=== PATIENT | female | born 1960 | race Caucasian/White ===

== ENCOUNTER 2019-09-12 11:19 | Observation (INO) ==
[2019-09-12] MEDS ORDERED: SODIUM CHLORIDE 0.9% 1000ML 1,000 ML IV SCH (11:45)
[2019-09-12] MEDS ORDERED: OPTIRAY 320 125ml IV PRN (11:45)
[2019-09-12 11:47] LABS: Basophils # (auto) 0.04 K/uL (0-0.2); Basophils % (auto) 0.5 %; Eosinophils % (auto) 3.9 %; Hematocrit (blood only) 40.3 % (37-47); Hemoglobin 12.7 g/dL (12.0-16.0); Immature Granulocytes # (auto) 0.01 K/uL (0.00-0.02); Immature Granulocytes % (auto) 0.1 %; Lymphocytes % (auto) 22.4 %; Mean Corpuscular Hemoglobin 27.2 pg (25-34); Mean Corpuscular Hgb Conc 31.5 g/dL (32-36); Mean Corpuscular Volume 86.3 fL (80-100); Mean Platelet Volume 10.2 fL (7.4-10.4); Monocytes # (auto) 0.33 K/uL (0.11-0.59); Monocytes % (auto) 4.3 %; Neutrophils # (auto) 5.22 K/uL (1.4-6.5); Neutrophils % (auto) 68.8 %; Platelet Count 329 K/uL (130-400); RDW Standard Deviation 43.8 fL (36.4-46.3); Red Blood Count 4.67 M/uL (4.2-5.4)
[2019-09-12 11:54] LABS: iSTAT Creatinine 0.7 mg/dl (0.6-1.3); iSTAT Hemoglobin 13.3 g/dl (12.0-16.0); iSTAT Ionized Calcium 1.14 mmol/l (1.12-1.32); iSTAT Potassium 3.7 mEq/L (3.3-5.0)
[2019-09-12 11:58] LABS: Partial Thromboplastin Ratio 0.9; Partial Thromboplastin Time 23.6 Seconds (21.0-31.0); Prothrombin Time 9.9 Seconds (9.0-12.0)
--- NOTE | 2019-09-12 12:00 | CT Scan Report ---
CT SCAN OF THE BRAIN WITHOUT IV CONTRAST CLINICAL HISTORY: Strokelike symptoms. COMPARISON STUDY: No priors. TECHNIQUE: Unenhanced axial CT scan of the brain is performed from the vertex to the skull base. A d ose lowering technique was utilized adhering to the principles of ALARA. FINDINGS: Brain parenchyma: There is mild subcortical and periventricular microangiopathic change. Right tempor al encephalomalacia is consistent with a remote insult. There is no hemorrhage, mass effect, or evide nce of acute territorial ischemia by CT criteria. [place]-white matter differentiation is preserved. No extra-axial fluid collection is seen. Ventricles, sulci, cisterns: Normal in configuration. Intracranial vasculature: There is atherosclerotic calcification of the cavernous carotid arteries. Calvarium: The skeletal structures are osteopenic. There is postoperative change from right-sided crane engineer niotomy. Sinuses and mastoids: The visualized paranasal sinuses are clear. The mastoid air cells are well pneu matized. Orbits: The bony orbits are grossly intact. There are bilateral ocular lens implants. IMPRESSION: There is no hemorrhage, mass effect, or evidence of acute territorial ischemia by CT duglas levine. Electronically signed by: Alexandre Curtis M.D. 09/12/2019 11:58 AM
[2019-09-12 12:04] LABS: Alanine Aminotransferase 15 U/L (12-78); Albumin Level 2.8 gm/dl (3.4-5.0); Aspartate Aminotransferase 10 U/L (15-37); BUN Creatinine Ratio 15.1 (10-20); Blood Urea Nitrogen 12 mg/dl (7-18); Calcium 8.4 mg/dl (8.5-10.1); Carbon Dioxide 29 mmol/L (21-32); Chloride 108 mmol/L (98-107); Creatinine Clr Calc Pharmacy 114.2 ml/min; Est GFR (African American) 96.3; Est GFR (Non-African American) 83.1; Glucose 118 mg/dl (70-99); Magnesium 2.1 mg/dl (1.8-2.4); Potassium 3.7 mmol/L (3.5-5.1); Sodium 141 mmol/L (136-145)
[2019-09-12 12:09] LABS: Albumin Globulin Ratio 0.6 (0.9-2); Alkaline Phosphatase 84 U/L (45-117); Bilirubin,Total 0.3 mg/dl (0.2-1); Globulin 4.4 gm/dl (2.5-4.0); Total Protein 7.2 gm/dl (6.4-8.2); Troponin I < 0.015 ng/ml (0-0.045)
--- NOTE | 2019-09-12 12:09 | CT Scan Report ---
HEAD & NECK CTA HISTORY: Stroke symptoms. TECHNIQUE: Multiaxial CT images of the head were performed following the intravenous administration o f contrast to evaluate the major cerebral vessels. Multiaxial CT images of the neck were also perform ed following the intravenous administration of contrast to evaluate the major cervical vessels. Maxim um intensity projection images were also obtained. A dose lowering technique was utilized adhering to the principles of ALARA. COMPARISON: Head CT 09/12/2019. FINDINGS: There is no mass, hematoma, midline shift, or acute infarct. Visualized left intracranial internal ca rotid artery, distal vertebral arteries, and basilar artery are widely patent. There is no significan t stenosis, occlusion, or aneurysm seen within the bilateral ACAs, MCAs, or performance analyst. Prior right frontot emporal craniotomy. Encephalomalacia within the right anterior temporal lobe is likely due to the old postoperative change. The major dural venous sinuses appear patent. Moderate focal narrowing of appr oximately 50% within the proximal cavernous segment of the right internal carotid artery. This is due to a surrounding enhancing soft tissue extra-axial mass measuring 2.0 x 1.0 cm. This favors a mening ioma. The aortic arch and proximal great vessels are widely patent. There is no significant stenosis, occ lusion, or dissection identified within the bilateral common carotid, internal carotid, or vertebral arteries. The anterior cervical fusion spinal hardware is noted. IMPRESSION: 1. No significant stenosis, occlusion, or aneurysm within the bilateral ACAs, MCAs, or performance analyst. 2. No significant stenosis, occlusion, or dissection identified within the cervical carotid or verteb ral arteries. 3. Moderate focal narrowing of approximately 50% within the proximal cavernous segment of the right i nternal carotid artery. This is due to a surrounding enhancing soft tissue extra-axial mass measuring 2.0 x 1.0 cm. This favors a meningioma. Electronically signed by: Yariel Fletcher M.D. 09/12/2019 12:08 PM
--- NOTE | 2019-09-12 12:09 | CT Scan Report ---
HEAD & NECK CTA HISTORY: Stroke symptoms. TECHNIQUE: Multiaxial CT images of the head were performed following the intravenous administration o f contrast to evaluate the major cerebral vessels. Multiaxial CT images of the neck were also perform ed following the intravenous administration of contrast to evaluate the major cervical vessels. Maxim um intensity projection images were also obtained. A dose lowering technique was utilized adhering to the principles of ALARA. COMPARISON: Head CT 09/12/2019. FINDINGS: There is no mass, hematoma, midline shift, or acute infarct. Visualized left intracranial internal ca rotid artery, distal vertebral arteries, and basilar artery are widely patent. There is no significan t stenosis, occlusion, or aneurysm seen within the bilateral ACAs, MCAs, or cigar head puncher. Prior right frontot emporal craniotomy. Encephalomalacia within the right anterior temporal lobe is likely due to the old postoperative change. The major dural venous sinuses appear patent. Moderate focal narrowing of appr oximately 50% within the proximal cavernous segment of the right internal carotid artery. This is due to a surrounding enhancing soft tissue extra-axial mass measuring 2.0 x 1.0 cm. This favors a mening ioma. The aortic arch and proximal great vessels are widely patent. There is no significant stenosis, occ lusion, or dissection identified within the bilateral common carotid, internal carotid, or vertebral arteries. The anterior cervical fusion spinal hardware is noted. IMPRESSION: 1. No significant stenosis, occlusion, or aneurysm within the bilateral ACAs, MCAs, or cigar head puncher. 2. No significant stenosis, occlusion, or dissection identified within the cervical carotid or verteb ral arteries. 3. Moderate focal narrowing of approximately 50% within the proximal cavernous segment of the right i nternal carotid artery. This is due to a surrounding enhancing soft tissue extra-axial mass measuring 2.0 x 1.0 cm. This favors a meningioma. Electronically signed by: Yariel Fletcher M.D. 09/12/2019 12:08 PM
[2019-09-12] MEDS ORDERED: ASPIRIN 81 MG ECTAB PO STA (12:29)
[2019-09-12] MEDS ORDERED: HydrALAZINE HCL 20 MG/ML VIAL IV ONE (12:29)
--- NOTE | 2019-09-12 13:02 | XRay Report ---
XR chest 1V portable HISTORY: Stroke symptoms. COMPARISON: None. FINDINGS: The lungs are clear. Cardiac silhouette is normal in size. No pleural effusions. No pneumot horax. IMPRESSION: No acute process. Electronically signed by: Yariel Fletcher M.D. 09/12/2019 1:00 PM
[2019-09-12 14:38] LABS: Influenza A virus by PCR Neg for Influ A (Neg); Influenza B virus by PCR Neg for Influ B (Neg)
--- NOTE | 2019-09-12 14:42 | History & Physical Report ---
Date of Service September 12, 2019 Assessment & Plan (1) Stroke-like symptoms: Admit to PCU on telemetry Vital signs every 4 hours Neurochecks per protocol for 24 hours MRI of the brain pending CTA brain and neck as above favoring meningioma TTE pending, CBC CMP daily, TSH , lipid panel , BNP, A1c pending US venous Doppler pending to rule out DVT Consulted neurology Monitor blood pressure in and keep below 150/90 DVT prophylaxis heparin 5000 units every 12 hours Full code (2) Uncontrolled hypertension: It is not completely clear if hypertension is caused by patient uncontrollable pain located in her right hip or patient is truly hypertensive. Patient was started on hydralazine 10 mg p.o. 3 times daily as needed for blood pressure elevated over 160/90. Started lisinopril 20 mg p.o. daily and will titrate up as needed to achieve better blood pressure control for this particular patient to be below 150/90. Will check for lipid panel and A1c. Her atorvastatin 10 mg p.o. nightly upgraded to 40 mg p.o. nightly and started aspirin 81 mg daily. TIA work-up versus stroke as above. Continue monitoring blood pressure Present on Admission?: Yes (3) Right hip pain: X-rays of the right hip pending. Continue blood pressure medicine for right hip pain diclofenac 75 mg p.o. twice daily, gabapentin 600 mg p.o. 3 times daily, tizanidine 4 mg p.o. nightly. Also added Percocet and morphine for severe right hip pain while x-rays are pending. Present on Admission?: Yes (4) Meningioma: Continue home medicine lacosamide 100 mg p.o. twice daily, and Levophed thoracic 1000 milligrams p.o. twice daily. Patient did not have seizures so far appears to be stable. Neurologic consult pending Present on Admission?: Yes (5) Hyperlipidemia: Fasting lipid panel pending. Atorvastatin 10 mg p.o. nightly upgraded to 40 mg p.o. nightly. Present on Admission?: Yes (6) Hypothyroidism: TSH pending. Continue home dose of levothyroxine 50 MCG's p.o. every morning. Present on Admission?: Yes History of Present Illness Chief Complaint: face droop, generalized weakness Primary Care Provider: NO PCP Patient is a 59 years old female with past medical history of hypertension, hyperlipidemia, meningioma, GERD who presents to the emergency room with a complaint of right-sided face droop and feeling dizzy and generalized weakness. Patient said her grandson was sick this morning as well and he had runny nose. Patient said she had a headache and her blood pressure was fluctuating. On arrival to the emergency room patient blood pressure was elevated 173/99 and she was given hydralazine 5 mg IV. She was also checked for influenza AMB and both were negative. Patient denies fever, chills, chest pain, shortness of breath, frequency, urgency, hematuria, dysuria, melena, nausea, vomiting. Patient was also given aspirin 81. At the beginning patient was reporting right sided hand weakness and leg weakness but then she admitted that she has chronic right hip pain and the pain is shooting from the back down to her leg. Labs are reviewed: WBC 7.6, hemoglobin 12.7, hematocrit 40.3, platelets 329, PT 9.9, INR 1, APTT 23.6, sodium 141, potassium 3.7, chloride 108, creatinine 0.79, GFR 83.1, magnesium 2.1, AST 10, ALT 15, troponin [address] head: There is no hemorrhage, mass affect, no evidence of acute territorial ischemia by CT criteria. CTA head and neck shows no significant stenosis, occlusion or aneurysm within the bilateral LEE as MCAS or PLANT ANATOMIST S, no significant stenosis occlusion or dissection identified within the cervical carotid or vertebral arteries. Moderate focal narrowing of approximately 50% within the proximal cavernosal segment of the right internal carotid artery. This is due to a surrounding enhancing soft tissue extra-axial mass measuring 2 x 1 cm this favors a meningioma. Decision was made to admit patient for observation on telemetry for to rule out transient ischemic attack and further diagnosis and treatment. Allergies Allergy/AdvReac Type Severity Reaction Status Date / Time erythromycin base Allergy Hives Verified 09/12/19 12:26 meclizine Allergy Rash Verified 09/12/19 12:26 meperidine [From Demerol] Allergy Rash Verified 09/12/19 12:26 acetaminophen [From Vicodin] AdvReac Vomiting Verified 09/12/19 12:26 hydrocodone [From Vicodin] AdvReac Vomiting Verified 09/12/19 12:26 Home Medications Home Medications Medication Instructions Recorded Confirmed Type atorvastatin 10 mg PO HS 09/12/19 09/12/19 History buspirone 10 mg PO BID 09/12/19 09/12/19 History diclofenac sodium 75 mg PO BID 09/12/19 09/12/19 History gabapentin 600 mg PO TID 09/12/19 09/12/19 History lacosamide [Vimpat] 100 mg PO BID 09/12/19 09/12/19 History levetiracetam 1,000 mg PO BID 09/12/19 09/12/19 History levothyroxine 50 mcg PO QAM 09/12/19 09/12/19 History omeprazole 40 mg PO DAILY 09/12/19 09/12/19 History oxycodone-acetaminophen 1 tab PO QID PRN 09/12/19 09/12/19 History tizanidine 4 mg PO HS 09/12/19 09/12/19 History vitamin B complex [B-Complex] 1 tab PO DAILY 09/12/19 09/12/19 History Past Med/Surg History Medical History HTN (hypertension) Meningioma Seizures Stroke Family History Other No significant family history Social History Preferred Language: Jordanian Communication Ability: Effective 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: No Beliefs That Will Affect Care: None Current Living Situation: Family Current Living Situation Comment: lives with daughter in [place] Other Information That Helps Us Care for You: No Feels Safe at Home: Yes Safety Concerns: Feels Safe At This Time Smoking Status: Former smoker Hx Alcohol Use: No Hx Substance Use: No Review of Systems Review of Systems: All systems reviewed & are unremarkable except as noted in HPI & below Physical Exam Constitutional: WD/WN, vitals as above well developed and + morbidly obese Eyes: PERRL, conjunctivae normal, anicteric sclerae ENMT: external ear and nose normal, oropharynx normal Neck: trachea midline, no thyromegaly Respiratory: normal respiratory effort, lungs clear to auscultation Cardiovascular: Heart Sounds: normal S1 and normal S2 Vessels: dorsalis pedis pulses present Extremities: + pedal edema Musculoskeletal: no cyanosis or clubbing, extremities motor strength 5/5 Right hip pain, positive straight leg test Skin: no rashes, warm and dry Neurologic: patellar DTR's 2+ bilat, sensation intact Genitourinary: no vaginal lesions, no adnexal mass Lymphatic: no cervical or axillary lymphadenopathy Results & Data Vital Signs (Past 12 Hours) Vital Signs Temp Pulse Resp BP Pulse Ox 09/12/19 13:30 72 16 173/99 H 97 09/12/19 13:00 81 20 154/125 H 97 09/12/19 12:51 72 19 154/107 H 96 09/12/19 12:31 80 20 171/111 H 96 09/12/19 12:04 72 20 177/121 H 97 09/12/19 11:26 36.8 C 74 20 173/131 H 96 Code Status & VTE Plan Code Status Full code VTE Prophylaxis Plan VTE Prophylaxis will be ordered: Yes PG Care Time/CCT Total # of Minutes Spent Total Time Spent with Patient: Total time spent is greater than 50% in coordination of care (as documented) at patient's floor/unit and/or counseling patient:
[2019-09-12] MEDS ORDERED: INFLUENZA VIRUS QUAD VACCINE 0.5 ML SYR IM ONE (14:45)
[2019-09-12] MEDS ORDERED: INFLUENZA ADMINISTRATION CHARGE ONE (14:45)
[2019-09-12] MEDS ORDERED: MAGNESIUM HYDROXIDE SUSP 30 ML UDC PO PRN (15:51)
[2019-09-12] MEDS ORDERED: POLYETHYLENE (MIRALAX) 17 GM PACK PO PRN (15:51)
[2019-09-12] MEDS ORDERED: ALUMINUM/MAGNESIUM SUSP 30 ML UDC PO PRN (15:51)
[2019-09-12] MEDS ORDERED: PHARMACIST DISCHARGE MED REC CONSULT PRN (15:51)
[2019-09-12] MEDS ORDERED: ACETAMINOPHEN 325 MG TAB PO PRN (15:51)
[2019-09-12] MEDS ORDERED: HydrALAZINE 10 MG TAB PO PRN (15:51)
--- NOTE | 2019-09-12 16:18 | XRay Report ---
XR hip RT min 2V CLINICAL HISTORY: right hip pain COMPARISON: None. DISCUSSION: The bones and joint spaces appear intact. There is no evidence of fracture, dislocation o r bony disease. There is no evidence for soft tissue swelling. Mild degenerative change IMPRESSION: No acute process. Mild degenerative change right hip. The above report was generated using voice recognition software. It may contain grammatical, syntax or spelling errors. Electronically signed by: Saurabh Lara M.D. 09/12/2019 4:16 PM
[2019-09-12] MEDS ORDERED: PROMETHAZINE HCL 25 MG in SODIUM CHLORIDE 0.9% 50 ML IV PRN (16:36)
[2019-09-12] MEDS: ONDANSETRON INJ 2 MG/ML 2 ML VIAL IV PRN (16:47)
[2019-09-12] MEDS: OXYCODONE/ACETAMINOPHEN 10-325 TAB PO PRN (16:51)
--- NOTE | 2019-09-12 16:52 | Ultrasound Report ---
US venous doppler LE BI HISTORY: Pain. Edema. POSSIBLE DVT COMPARISON STUDY: None. FINDINGS: There is normal compressibility, flow, and augmentation within the bilateral lower extremit y deep venous systems. IMPRESSION: No DVT within the right or left lower extremity. The above report was generated using voice recognition software. It may contain grammatical, syntax or spelling errors. Electronically signed by: Saurabh Lara M.D. 09/12/2019 4:51 PM
[2019-09-12] MEDS: GABAPENTIN 600 MG TAB PO SCH (16:56)
--- NOTE | 2019-09-12 17:41 | Emergency Department Note ---
Entered by Alberto Malin acting as a scribe for ED Provider Note CHIEF COMPLAINT: Stroke-like symptoms HISTORY OF PRESENT ILLNESS: The patient is a 59 year old female who presents to the Emergency Room with complaints of an episode of stroke like symptoms that began approximately 1 hour ago, per the RN. The RN states the patient has developed slurred speech, left sided facial droop, and dizziness. The RN notes the patients dizziness is better when she sits up and worsened with laying down. The patient states she feels weak to her right side. The patient also reports of left-sided neck pain that she describes as a shooting pain, and she states it is worsened with turning. She rates this neck pain as an 8/10. The patient reports she has had mini strokes over the past 3 years, but the patient reports that she was told her mini strokes are more likely seizures. The patient states she had 3 seizures in close proximity to each other back in November. The patient denies taking blood thinners, but she states she is on Keppra and Gabapentin for her seizures. The patient notes she also has daily blood pressure medications, but the patient states she has missed the last few days of taking her blood pressure medication because she is visiting this area and did not take enough of her medications with along with her. The patient states she was told recently to start taking aspirin daily, but she states she has not started yet. The patient notes she is from [place]. Pt denies LOC, fevers, chills, diaphoresis, visual changes, chest pain, breathing difficulties, nausea, vomiting, abdominal pain, back pain, melena, hematochezia, urinary symptoms, lymphadenopathy, rash, or other complaints. REVIEW OF SYSTEMS: See HPI for pertinent positives and negatives. A total of ten systems were reviewed and were otherwise negative. PMHx/PSHx: Stroke Meningioma Seizure Hypertension SOCIAL HISTORY: Patient lives at home. PHYSICAL EXAM: GENERAL: Awake, alert, well-appearing, in no distress HENT: Normocephalic, atraumatic. Oropharynx unremarkable. EYES: PERRL. Normal conjunctiva. Sclera non-icteric. NECK: Inspection normal. Non-tender. Supple. No nuchal rigidity. FROM. No masses. RESPIRATORY: Clear to auscultation. No wheezes. No rales. Normal respiratory effort. CARDIAC: Normal rate. Normal rhythm. No murmurs. No rubs. Extremities warm and well perfused. Pulses equal. No JVD. GI: Soft, non-distended. No tenderness to palpation. No rebound or guarding. No masses. RECTAL: Deferred. MUSCULOSKELETAL: Atraumatic. Chest examination reveals no tenderness. The back is symmetrical on inspection without obvious abnormality. There is no CVA tenderness to palpation. No joint edema. LOWER EXTREMITIES: Calves are equal size bilaterally and non-tender. No edema. No discoloration. NEURO: Left facial droop. Mild right arm drift. Weakness in right arm and right leg. Speech is slow. No sensory deficits noted. SKIN: No rash or jaundice noted. EMERGENCY DEPARTMENT COURSE: 1135: Past medical records reviewed. The patient was evaluated in room C7, and a complete history and physical examination were performed. 1200: I discussed the patient's case with Dr. Bullock. 1229: I discussed the patient's case with Dr. Bullock. Dr. Gay states the patient is not a tPA candidate, and Dr. Gay recommends baby aspirin and blood pressure management. 1236: I updated the patient on her case. 1336: I reviewed the patient's case with Dr. Goldberg-Hospitalist [facility]. Dr. Goldberg will evaluate the patient for further management. MEDICAL DECISION MAKING: Nursing notes reviewed and agree them. Additional history obtained from EMS. The patient's history was concerning for weakness. Differential diagnosis: Etiologies such as TIA, CVA, metabolic, infection, hypo/hyperglycemia, electrolyte abnormalities, cardiac sources, intracerebral event, toxicologic, neurologic, as well as others were entertained. Physical examination: As above. ER treatment provided: IV Lock Normal saline hydration Baby aspirin IV hydralazine On reassessment the patient felt better. Diagnostics interpretation by me: ECG: Normal The labs revealed an unremarkable CBC and chemistry panel. Imaging studies: CT scan of the head with angiography of the head and neck. Negative for acute process. Chest imaging negative. Consultation: A consultation was made as a stroke alert with Mary Jane ambrosio-stroke. Given the patient's medical history she is not a TPA candidate per neurology. Further evaluation in the hospital was recommended. A consultation was placed with the hospitalist. The case was discussed and diagnostics were reviewed. The patient was evaluated in the ER for further treatment. IMPRESSION: Stroke like symptoms Severe hypertension PLAN: Being evaluated by a hospitalist. The scribe's documentation has been prepared under my direction and personally reviewed by me in its entirety. I confirm that the note above accurately reflects all work, treatment, procedures, and medical decision making performed by me. 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 Beliefs That Will Affect Care: None Current Living Situation: Family Current Living Situation Comment: lives with daughter in [place] Feels Safe at Home: Yes Smoking Status: Former smoker Hx Alcohol Use: No Hx Substance Use: No Results & Data Vital Signs Vital Signs - 24 hr 09/12/19 11:26 09/12/19 12:04 09/12/19 12:31 Temperature 36.8 C Temperature Source Oral Sepsis Recent Fever Within 48 Hours No Sepsis New/Unexplained Change in Mental Status No Sepsis Action Taken by Nursing No Action Required Pulse Rate 74 72 80 Pulse Rate from SpO2 Sensor 72 79 Respiratory Rate 20 20 20 Blood Pressure 173/131 H 177/121 H 171/111 H Blood Pressure Mean 145 139 131 Blood Pressure Position Sitting Pulse Oximetry 96 97 96 09/12/19 12:51 09/12/19 13:00 09/12/19 13:30 Temperature Temperature Source Sepsis Recent Fever Within 48 Hours Sepsis New/Unexplained Change in Mental Status Sepsis Action Taken by Nursing Pulse Rate 72 81 72 Pulse Rate from SpO2 Sensor 83 72 Respiratory Rate 19 20 16 Blood Pressure 154/107 H 154/125 H 173/99 H Blood Pressure Mean 122 134 123 Blood Pressure Position Pulse Oximetry 96 97 97 09/12/19 14:00 Temperature Temperature Source Sepsis Recent Fever Within 48 Hours Sepsis New/Unexplained Change in Mental Status Sepsis Action Taken by Nursing Pulse Rate 61 Pulse Rate from SpO2 Sensor 67 Respiratory Rate 17 Blood Pressure 175/119 H Blood Pressure Mean 137 Blood Pressure Position Pulse Oximetry 96 Home Medications Current Medication List: was personally reviewed by me Laboratory Data Attestation: I reviewed the patient's lab results. Result diagrams: 09/12/19 11:38 09/12/19 11:38 Lab Results 09/12/19 09/12/19 09/12/19 Range/Units 11:38 11:38 11:38 WBC 7.60 (4.8-10.8) K/uL RBC 4.67 (4.2-5.4) M/uL Hgb 12.7 (12.0-16.0) g/dL POC Hgb (12.0-16.0) g/dl Hct 40.3 (37-47) % POC Hct (37-47) % MCV 86.3 (80-100) fL MCH 27.2 (25-34) pg MCHC 31.5 L (32-36) g/dL RDW Std Deviation 43.8 (36.4-46.3) fL RDW Coeff of Marques 14.0 (11.5-14.5) % Plt Count 329 (130-400) K/uL MPV 10.2 (7.4-10.4) fL Immature Gran % (Auto) 0.1 % Neut % (Auto) 68.8 % Lymph % (Auto) 22.4 % Ulster % (Auto) 4.3 % Eos % (Auto) 3.9 % Baso % (Auto) 0.5 % Immature Gran # (Auto) 0.01 (0.00-0.02) K/uL Neut # (Auto) 5.22 (1.4-6.5) K/uL Lymph # (Auto) 1.70 (1.2-3.4) K/uL [place] # (Auto) 0.33 (0.11-0.59) K/uL Eos # (Auto) 0.30 (0-0.5) K/uL Baso # (Auto) 0.04 (0-0.2) K/uL PT 9.9 (9.0-12.0) Seconds INR 1.0 (0.9-1.1) APTT 23.6 (21.0-31.0) Seconds PTT Ratio 0.9 POC Sodium (135-144) mEq/L Sodium 141 (136-145) mmol/L POC Potassium (3.3-5.0) mEq/L Potassium 3.7 (3.5-5.1) mmol/L POC Chloride (101-112) mEq/L Chloride 108 H (98-107) mmol/L Carbon Dioxide 29 (21-32) mmol/L POC Total CO2 (24-31) mEq/l Anion Gap 3.0 (3-11) POC Anion Gap (16-25) mmol/L POC BUN (7-18) mg/dl BUN 12 (7-18) mg/dl Creatinine 0.79 (0.6-1.2) mg/dl POC Creatinine (0.6-1.3) mg/dl Est Cr Clr Drug Dosing 114.2 ml/min Est GFR ( Amer) 96.3 Est GFR (Non-Af Amer) 83.1 BUN/Creatinine Ratio 15.1 (10-20) Glucose 118 H (70-99) mg/dl POC Glucose (other) (70-99) mg/dl Calcium 8.4 L (8.5-10.1) mg/dl POC Ioniz Calcium Trent (1.12-1.32) mmol/l Magnesium 2.1 (1.8-2.4) mg/dl Total Bilirubin 0.3 (0.2-1) mg/dl AST 10 L (15-37) U/L ALT 15 (12-78) U/L Alkaline Phosphatase 84 (45-117) U/L Troponin I < 0.015 (0-0.045) ng/ml Total Protein 7.2 (6.4-8.2) gm/dl Albumin 2.8 L (3.4-5.0) gm/dl Globulin 4.4 H (2.5-4.0) gm/dl Albumin/Globulin Ratio 0.6 L (0.9-2) Hepatitis C Ab Screen (Neg) Influenza Type A (PCR) (Neg) Influenza Type B (PCR) (Neg) Blood Type Antibody Screen 09/12/19 09/12/19 09/12/19 Range/Units 11:38 11:41 11:55 WBC (4.8-10.8) K/uL RBC (4.2-5.4) M/uL Hgb (12.0-16.0) g/dL POC Hgb 13.3 (12.0-16.0) g/dl Hct (37-47) % POC Hct 39 (37-47) % MCV (80-100) fL MCH (25-34) pg MCHC (32-36) g/dL RDW Std Deviation (36.4-46.3) fL RDW Coeff of Marques (11.5-14.5) % Plt Count (130-400) K/uL MPV (7.4-10.4) fL Immature Gran % (Auto) % Neut % (Auto) % Lymph % (Auto) % Ulster % (Auto) % Eos % (Auto) % Baso % (Auto) % Immature Gran # (Auto) (0.00-0.02) K/uL Neut # (Auto) (1.4-6.5) K/uL Lymph # (Auto) (1.2-3.4) K/uL Ulster # (Auto) (0.11-0.59) K/uL Eos # (Auto) (0-0.5) K/uL Baso # (Auto) (0-0.2) K/uL PT (9.0-12.0) Seconds INR (0.9-1.1) APTT (21.0-31.0) Seconds PTT Ratio POC Sodium 143 (135-144) mEq/L Sodium (136-145) mmol/L POC Potassium 3.7 (3.3-5.0) mEq/L Potassium (3.5-5.1) mmol/L POC Chloride 103 (101-112) mEq/L Chloride (98-107) mmol/L Carbon Dioxide (21-32) mmol/L POC Total CO2 28 (24-31) mEq/l Anion Gap (3-11) POC Anion Gap 15.0 L (16-25) mmol/L POC BUN 12 (7-18) mg/dl BUN (7-18) mg/dl Creatinine (0.6-1.2) mg/dl POC Creatinine 0.7 (0.6-1.3) mg/dl Est Cr Clr Drug Dosing ml/min Est GFR ( Amer) Est GFR (Non-Af Amer) BUN/Creatinine Ratio (10-20) Glucose (70-99) mg/dl POC Glucose (other) 119 H (70-99) mg/dl Calcium (8.5-10.1) mg/dl POC Ioniz Calcium Trent 1.14 (1.12-1.32) mmol/l Magnesium (1.8-2.4) mg/dl Total Bilirubin (0.2-1) mg/dl AST (15-37) U/L ALT (12-78) U/L Alkaline Phosphatase (45-117) U/L Troponin I (0-0.045) ng/ml Total Protein (6.4-8.2) gm/dl Albumin (3.4-5.0) gm/dl Globulin (2.5-4.0) gm/dl Albumin/Globulin Ratio (0.9-2) Hepatitis C Ab Screen Neg (Neg) Influenza Type A (PCR) (Neg) Influenza Type B (PCR) (Neg) Blood Type A Positive Antibody Screen NEGATIVE 09/12/19 Range/Units 14:00 WBC (4.8-10.8) K/uL RBC (4.2-5.4) M/uL Hgb (12.0-16.0) g/dL POC Hgb (12.0-16.0) g/dl Hct (37-47) % POC Hct (37-47) % MCV (80-100) fL MCH (25-34) pg MCHC (32-36) g/dL RDW Std Deviation (36.4-46.3) fL RDW Coeff of Marques (11.5-14.5) % Plt Count (130-400) K/uL MPV (7.4-10.4) fL Immature Gran % (Auto) % Neut % (Auto) % Lymph % (Auto) % Ulster % (Auto) % Eos % (Auto) % Baso % (Auto) % Immature Gran # (Auto) (0.00-0.02) K/uL Neut # (Auto) (1.4-6.5) K/uL Lymph # (Auto) (1.2-3.4) K/uL [place]ster # (Auto) (0.11-0.59) K/uL Eos # (Auto) (0-0.5) K/uL Baso # (Auto) (0-0.2) K/uL PT (9.0-12.0) Seconds INR (0.9-1.1) APTT (21.0-31.0) Seconds PTT Ratio POC Sodium (135-144) mEq/L Sodium (136-145) mmol/L POC Potassium (3.3-5.0) mEq/L Potassium (3.5-5.1) mmol/L POC Chloride (101-112) mEq/L Chloride (98-107) mmol/L Carbon Dioxide (21-32) mmol/L POC Total CO2 (24-31) mEq/l Anion Gap (3-11) POC Anion Gap (16-25) mmol/L POC BUN (7-18) mg/dl BUN (7-18) mg/dl Creatinine (0.6-1.2) mg/dl POC Creatinine (0.6-1.3) mg/dl Est Cr Clr Drug Dosing ml/min Est GFR ( Amer) Est GFR (Non-Af Amer) BUN/Creatinine Ratio (10-20) Glucose (70-99) mg/dl POC Glucose (other) (70-99) mg/dl Calcium (8.5-10.1) mg/dl POC Ioniz Calcium Trent (1.12-1.32) mmol/l Magnesium (1.8-2.4) mg/dl Total Bilirubin (0.2-1) mg/dl AST (15-37) U/L ALT (12-78) U/L Alkaline Phosphatase (45-117) U/L Troponin I (0-0.045) ng/ml Total Protein (6.4-8.2) gm/dl Albumin (3.4-5.0) gm/dl Globulin (2.5-4.0) gm/dl Albumin/Globulin Ratio (0.9-2) Hepatitis C Ab Screen (Neg) Influenza Type A (PCR) Neg for Influ A (Neg) Influenza Type B (PCR) Neg for Influ B (Neg) Blood Type Antibody Screen Administered Medications Gabapentin (Neurontin) 600 mg PO TID MIKEY Stop: 10/12/19 16:14 Last Admin: 09/12/19 16:56 Dose: 600 mg Documented by: [id number] Hydralazine HCl (Apresoline) 10 mg PO TID PRN PRN Reason: high blood pressure Stop: 10/12/19 15:50 Last Admin: 09/12/19 16:59 Dose: 10 mg Documented by: [id number] Ondansetron HCl (Zofran) 4 mg IV Q4H PRN PRN Reason: Nausea Stop: 10/12/19 16:34 Last Admin: 09/12/19 16:47 Dose: 4 mg Documented by: [id number] Oxycodone/Acetaminophen (Percocet 10/325mg) 1 tab PO QID PRN PRN Reason: Pain Stop: 09/26/19 15:50 Last Admin: 09/12/19 16:51 Dose: 1 tab Documented by: [id number] Discontinued Medications Aspirin (Ecotrin Ectab) 81 mg PO NOW STA Stop: 09/12/19 12:30 Last Admin: 09/12/19 12:41 Dose: 81 mg Documented by: [id number] Hydralazine HCl (Hydralazine Hcl) 5 mg IV NOW ONE Stop: 09/12/19 12:30 Last Admin: 09/12/19 12:40 Dose: 5 mg Documented by: [id number] Sodium Chloride (Nss 1000ml) 1,000 mls @ 50 mls/hr IV .Q20H MIKEY Stop: 10/12/19 11:44 Last Infusion: 09/12/19 15:59 Dose: 0 mls/hr Documented by: [id number] Admin: 09/12/19 12:28 Dose: 50 mls/hr Documented by: [id number] Ioversol (Optiray 320 125ml) 120 ml IV ONCE PRN PRN Reason: Interaction Checking Stop: 09/16/19 11:44 Last Admin: 09/12/19 11:45 Dose: 120 ml Documented by: [id number] Imaging Data Radiologist's Impression: Radiology results as stated below per my review and the radiologist's interpretation: HEAD & NECK CTA HISTORY: Stroke symptoms. TECHNIQUE: Multiaxial CT images of the head were performed following the intravenous administration of contrast to evaluate the major cerebral vessels. Multiaxial CT images of the neck were also performed following the intravenous administration of contrast to evaluate the major cervical vessels. Maximum intensity projection images were also obtained. A dose lowering technique was utilized adhering to the principles of ALARA. COMPARISON: Head CT 09/12/2019. FINDINGS: There is no mass, hematoma, midline shift, or acute infarct. Visualized left intracranial internal carotid artery, distal vertebral arteries, and basilar artery are widely patent. There is no significant stenosis, occlusion, or aneurysm seen within the bilateral ACAs, MCAs, or under seal operator. Prior right frontotemporal craniotomy. Encephalomalacia within the right anterior temporal lobe is likely due to the old postoperative change. The major dural venous sinuses appear patent. Moderate focal narrowing of approximately 50% within the proximal cavernous segment of the right internal carotid artery. This is due to a surrounding enhancing soft tissue extra-axial mass measuring 2.0 x 1.0 cm. This favors a meningioma. The aortic arch and proximal great vessels are widely patent. There is no significant stenosis, occlusion, or dissection identified within the bilateral common carotid, internal carotid, or vertebral arteries. The anterior cervical fusion spinal hardware is noted. IMPRESSION: 1. No significant stenosis, occlusion, or aneurysm within the bilateral ACAs, MCAs, or under seal operator. 2. No significant stenosis, occlusion, or dissection identified within the cervical carotid or vertebral arteries. 3. Moderate focal narrowing of approximately 50% within the proximal cavernous segment of the right internal carotid artery. This is due to a surrounding enhancing soft tissue extra-axial mass measuring 2.0 x 1.0 cm. This favors a meningioma. Electronically signed by: Yariel Fletcher M.D. 09/12/2019 12:[address] SCAN OF THE BRAIN WITHOUT IV CONTRAST CLINICAL HISTORY: Strokelike symptoms. COMPARISON STUDY: No priors. TECHNIQUE: Unenhanced axial CT scan of the brain is performed from the vertex to the skull base. A dose lowering technique was utilized adhering to the principles of ALARA. FINDINGS: Brain parenchyma: There is mild subcortical and periventricular microangiopathic change. Right temporal encephalomalacia is consistent with a remote insult. There is no hemorrhage, mass effect, or evidence of acute territorial ischemia by CT criteria. [place]-white matter differentiation is preserved. No extra-axial fluid collection is seen. Ventricles, sulci, cisterns: Normal in configuration. Intracranial vasculature: There is atherosclerotic calcification of the cavernous carotid arteries. Calvarium: The skeletal structures are osteopenic. There is postoperative change from right-sided craniotomy. Sinuses and mastoids: The visualized paranasal sinuses are clear. The mastoid air cells are well pneumatized. Orbits: The bony orbits are grossly intact. There are bilateral ocular lens implants. IMPRESSION: There is no hemorrhage, mass effect, or evidence of acute territorial ischemia by CT criteria. Electronically signed by: Alexandre Curtis M.D. 09/12/2019 11:58 AM XR chest 1V portable HISTORY: Stroke symptoms. COMPARISON: None. FINDINGS: The lungs are clear. Cardiac silhouette is normal in size. No pleural effusions. No pneumothorax. IMPRESSION: No acute process. Electronically signed by: Yariel Fletcher M.D. 09/12/2019 1:00 PM ECG Data Attestation: I personally reviewed and interpreted this ECG as follows: Indication: weakness Rate (beats per minute): 71 Rhythm: normal sinus Findings: + other (LVH; normal QRS); no PAC, no PVC, no ST depression and no ST elevation Blood Pressure Blood Pressure Findings: Elevated blood pressure Blood Pressure Disposition: further management by hospitalist Discharge Plan Visit Data *Final* Discharge Date/Time: 09/12/19 15:25 Chief Complaint: Stroke/CVA Symptoms Stated Complaint: weakness/dizzy, L sided neck pain ED Provider: Doroteo Gauthier Discharge Problem: Stroke-like symptoms, Severe hypertension Patient Disposition: Admitted As Inpatient Discharge Instructions Interventions: ED Discharge Assessment Last Done: 09/12/19 15:25 The scribe's documentation has been prepared under my direction and personally reviewed by me in its entirety. I confirm that the note above accurately reflects all work, treatment, procedures, and medical decision making performed by me.
[2019-09-12] MEDS ORDERED: LORazepam 1 MG/2 ML VIAL IV STA (18:24)
[2019-09-12] MEDS: LISINOPRIL 10 MG TAB PO SCH (19:59)
--- NOTE | 2019-09-12 20:59 | Magnetic Resonance Report ---
MR brain wo con HISTORY: Mental status change TIA TECHNIQUE: Multiplanar multisequence MRI of the brain was performed without the use of contrast. COMPARISON STUDY: CT brain same date FINDINGS: There are no areas of restricted diffusion to suggest acute infarction. The midline structu res are intact. The paranasal sinuses are clear. The mastoid air cells are clear. The ventricles and sulci are within normal limits for age. There is no mass, hematoma, midline shift. The major vascular flow-voids at the skull base are well maintained. There are findings of postoperative encephalomalac ia of the right temporal lobe. The ventricular system is midline. There is moderate motion artifact. This compromises high-resolution detail. IMPRESSION: 1. No acute intracranial abnormality. 2. No evidence for an acute ischemic event. 3. Operative changes right temporal lobe with associated postprocedural encephalomalacia. The above report was generated using voice recognition software. It may contain grammatical, syntax or spelling errors. Electronically signed by: Saurabh Lara M.D. 09/12/2019 8:57 PM
[2019-09-12] MEDS ORDERED: ATORVASTATIN 10 MG TAB PO SCH (21:00)
[2019-09-12] MEDS: HEPARIN SOD 5,000 UNIT/0.5 ML VIAL SQ SCH (21:58)
[2019-09-12] MEDS: levETIRAcetam 500 MG TAB PO SCH (22:38)
[2019-09-12] MEDS: LACOSAMIDE 50 MG TABLET PO SCH (22:38)
[2019-09-12] MEDS: TIZANIDINE HCL 4 MG TABLET PO SCH (22:39)
[2019-09-12] MEDS: DICLOFENAC SODIUM 75 MG TABCR PO SCH (22:41)
[2019-09-13] MEDS: GABAPENTIN 600 MG TAB PO SCH ×4 (00:34→21:19)
[2019-09-13] MEDS: ONDANSETRON INJ 2 MG/ML 2 ML VIAL IV PRN (05:41)
[2019-09-13] MEDS: OXYCODONE/ACETAMINOPHEN 10-325 TAB PO PRN (05:41)
[2019-09-13] MEDS: HEPARIN SOD 5,000 UNIT/0.5 ML VIAL SQ SCH ×3 (05:42→21:29)
[2019-09-13] MEDS: LEVOTHYROXINE SODIUM 50 MCG TABLET PO SCH (05:42)
[2019-09-13 05:55] LABS: Basophils # (auto) 0.02 K/uL (0-0.2); Basophils % (auto) 0.3 %; Eosinophils # (auto) 0.24 K/uL (0-0.5); Eosinophils % (auto) 3.1 %; Hematocrit (blood only) 39.9 % (37-47); Hemoglobin 12.5 g/dL (12.0-16.0); Immature Granulocytes # (auto) 0.02 K/uL (0.00-0.02); Immature Granulocytes % (auto) 0.3 %; Lymphocytes # (auto) 1.92 K/uL (1.2-3.4); Lymphocytes % (auto) 24.5 %; Mean Corpuscular Hemoglobin 27.3 pg (25-34); Mean Corpuscular Hgb Conc 31.3 g/dL (32-36); Mean Corpuscular Volume 87.1 fL (80-100); Mean Platelet Volume 10.2 fL (7.4-10.4); Monocytes # (auto) 0.39 K/uL (0.11-0.59); Neutrophils # (auto) 5.26 K/uL (1.4-6.5); Neutrophils % (auto) 66.8 %; Platelet Count 314 K/uL (130-400); RDW Coefficient of Variation 14.3 % (11.5-14.5); RDW Standard Deviation 45.3 fL (36.4-46.3); Red Blood Count 4.58 M/uL (4.2-5.4); White Blood Count 7.85 K/uL (4.8-10.8)
[2019-09-13 06:21] LABS: Albumin Level 2.7 gm/dl (3.4-5.0); BUN Creatinine Ratio 17.3 (10-20); Calcium 8.4 mg/dl (8.5-10.1); Creatinine Clr Calc Pharmacy 105.6 ml/min; Est GFR (African American) 90.7; Est GFR (Non-African American) 78.3; Potassium 3.5 mmol/L (3.5-5.1)
[2019-09-13 06:32] LABS: Albumin Globulin Ratio 0.6 (0.9-2); Bilirubin,Total 0.4 mg/dl (0.2-1); Globulin 4.3 gm/dl (2.5-4.0); Thyroid Stimulating Hormone 1.48 uIu/ml (0.300-4.500)
[2019-09-13 06:50] LABS: Estimated Average Glucose 126 mg/dl
[2019-09-13] MEDS: DICLOFENAC SODIUM 75 MG TABCR PO SCH ×2 (08:01→21:19)
[2019-09-13] MEDS: LACOSAMIDE 50 MG TABLET PO SCH ×2 (08:01→21:20)
[2019-09-13] MEDS: levETIRAcetam 500 MG TAB PO SCH ×2 (08:02→21:21)
[2019-09-13] MEDS: ASPIRIN 81 MG ECTAB PO SCH (08:02)
[2019-09-13] MEDS: ATORVASTATIN 40 MG TAB PO SCH (08:03)
[2019-09-13] MEDS: LISINOPRIL 10 MG TAB PO SCH (08:03)
[2019-09-13] MEDS: PANTOprazole 40 MG TAB PO SCH (08:03)
[2019-09-13] MEDS: VITAMIN B COMPLEX TAB PO SCH (08:03)
--- NOTE | 2019-09-13 09:15 | Neurology Consultation ---
Date of Consultation September 13, 2019 Assessment & Plan (1) Stroke-like symptoms: This patient presentation with dysarthria, facial droop, and dizziness was potentially worrisome for stroke or TIA. However, there is clearly no evidence for an acute or subacute infarct on her MRI. TIA cannot be excluded. Furthermore, her chief complaint was actually severe left-sided neck pain of relatively acute onset, occurring in the context of a history of chronic intermittent cervicalgia. An acute cervical disc herniation should be considered. 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 She has chronic right facial hemianesthesia as well as weakness of the right periorbital musculature likely as a result of previous surgical treatment. Her history is also notable for seizure disorder for which she has been following with a neurologist in [place] and is prescribed gabapentin, Vimpat, and Keppra. It is also notable that she has been noncompliant with her medications as she did not bring enough of her pills with her, while visiting her daughter who lives locally. She has not taken her medications for the past 3 days. Nonetheless, her presentation is not strongly suggestive of breakthrough seizures. At this point, I would recommend obtaining a noncontrast MRI of the cervical spine to exclude an acute cervical disc herniation. Patient should resume her outpatient medication regimen including her 3 anticonvulsants. No dosage adjustments for her seizure medications is required at this time. I would not recommend an EEG at this time as this test would not alter her management. If she were to have a potential convulsive episode I would recommend loading with 1 g IV levetiracetam in that context. Checking anticonvulsant drug levels at this point in time would probably not alter her management as they are probably low in light of her reported history of medication noncompliance for the past 3 days. Furthermore, these levels would likely take about 1 week and she is not from this area and should really follow up with her neurologist back home after discharge. Continue follow-up with work-up for TIA including echocardiography results. Continue with management of hypertension. No further immediate recommendations. History of Present Illness Reason for Consultation: TIA? Requesting Physician: Uma Goldberg MD Attending Physician: Scarlet Vazquez MD History of Present Illness The patient is a 59-year-old female with a chief complaint of left-sided neck pain radiating to the occipital region which began acutely yesterday afternoon while lying down on a couch at her daughter's home. She does admit to a history of chronic neck pain, although nothing this severe or acute. She recalls feeling as if something popped in her neck. She then began to complain of dizziness and perhaps some right-sided weakness and a facial droop. 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 She has residual meningioma within the right cavernous sinus. She has been following with a neurologist in the [place] area for suspected seizures that began about 3 years ago and were initially thought to be TIA. The patient does have some difficulty describing the exact symptoms although it does not sound like she has had a generalized convulsive episode. Symptoms have been characterized by transient weakness, sensory disturbance, and associated alteration in mental status, at least as far as the patient can recall. She indicates that she has had an EEG completed in the past as well and was told that she probably has a seizure disorder. She has been prescribed gabapentin, Vimpat, and Keppra for her seizures. However, as above, she is from out of town and has been living with her daughter for the . She indicates that she did not bring enough of her medication with her and in fact has not taken any of her medications for at least the past 3 days. It does not sound like she has had a recent convulsive episode. She is mildly lethargic but has an intact mental status and seems to be able to adequately relay details of her history of present illness. She does have some difficulty keeping the right eyelid open which is chronic for her and indicates that she has had several ocular surgeries to potentially address this issue although they were not very helpful. Additional details as below. Allergies Allergy/AdvReac Type Severity Reaction Status Date / Time erythromycin base Allergy Hives Verified 09/12/19 12:26 meclizine Allergy Rash Verified 09/12/19 12:26 meperidine [From Demerol] Allergy Rash Verified 09/12/19 12:26 acetaminophen [From Vicodin] AdvReac Vomiting Verified 09/12/19 12:26 hydrocodone [From Vicodin] AdvReac Vomiting Verified 09/12/19 12:26 Home Medications Home Medications Medication Instructions Recorded Confirmed Type atorvastatin 10 mg PO HS 09/12/19 09/12/19 History buspirone 10 mg PO BID 09/12/19 09/12/19 History diclofenac sodium 75 mg PO BID 09/12/19 09/12/19 History gabapentin 600 mg PO TID 09/12/19 09/12/19 History lacosamide [Vimpat] 100 mg PO BID 09/12/19 09/12/19 History levetiracetam 1,000 mg PO BID 09/12/19 09/12/19 History levothyroxine 50 mcg PO QAM 09/12/19 09/12/19 History omeprazole 40 mg PO DAILY 09/12/19 09/12/19 History oxycodone-acetaminophen 1 tab PO QID PRN 09/12/19 09/12/19 History tizanidine 4 mg PO HS 09/12/19 09/12/19 History vitamin B complex [B-Complex] 1 tab PO DAILY 09/12/19 09/12/19 History Patient History Medical History HTN (hypertension) Meningioma Seizures Stroke Family History Other No significant family history Social History Preferred Language: Indonesian Communication Ability: Effective 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 She relays a history of bilateral cataract surgery with some residual blurry abnormality on the right as well. Ear, Nose, Mouth, Throat: no hearing loss Respiratory: no cough and no dyspnea Cardiovascular: no chest pain and no palpitations Gastrointestinal: no nausea and no vomiting Genitourinary: no urinary incontinence Musculoskeletal: as per Subjective / HPI and + neck pain; no myalgia Integumentary: no rash and no lesions Neurologic: as per Subjective / HPI, + localized weakness, + loss of sensa tion, + dizziness and + headache(s); no seizure-like activity, no abnormal speech, no confusion and no memory loss Patient complains of chronic right facial numbness ever since her meningioma resection in 2000 Psychiatric: no depression, no anxiety and no hallucinations Hematologic / Lymphatic: no easy bleeding and no easy bruising Physical Exam Physical Exam: The patient is a well-developed, well-nourished elderly adult female. She is alert and fully oriented. Recent and remote memory intact. Attention and concentration normal. Patient exhibits a normal spontaneous speech pattern. She is able to name objects and repeat phrases without difficulty. Patient exhibits an age-appropriate fund of knowledge and normal comprehension of vocabulary. Visual deleon full to confrontation. Visual acuity normal. Pupils are a bit asymmetric with the right pupil postsurgical appearing and somewhat less reactive to light than the left. Left pupil round and reactive to light. Eye movements normal. No nystagmus. There is weakness of the right upper eyelid with associated ptosis (chronic issue). Patient is able to fire the brow. Smile appears symmetric. There is diminished facial sensation for the right upper and middle aspect of the face. There is no gross facial droop. Hearing intact. Palate elevates to midline. Shoulder shrug intact. Tongue protrudes to midline. Sensation intact to all modalities in all 4 limbs. Deep tendon reflexes are diminished for the arms and legs bilaterally. Plantar responses upgoing for the right, downgoing for the left. There is mild dysmetria with [id number] and [id number] on the right. No dysmetria [id number] or [id number] on the left. Ophthalmoscopic examination reveals normal-appearing optic disks and posterior segments. No papilledema or hemorrhages. Carotid pulses normal bilaterally, no bruits to auscultation. Gait and station not tested due to safety concerns. Patient exhibits normal muscle strength and tone for all 4 limbs. No atrophy. No abnormal movements observed. Results & Data Vital Signs (Past 12 Hours) Vital Signs Temp Pulse Resp BP BP Pulse Ox 09/13/19 07:00 36.5 C 79 18 113/73 94 09/13/19 04:00 36.5 C 82 18 126/69 96 09/13/19 01:41 81 18 143/92 H 97 09/12/19 23:04 36.5 C 76 18 131/83 94 09/12/19 22:11 142/80 H Laboratory Results WBC 7.85, hemoglobin 12.5, hematocrit 39.9, platelet count 314, sodium 140, potassium 3.5, BUN 14, creatinine 0.83, glucose 104, hemoglobin A1c 6.0, AST 9, ALT 15, triglycerides 113, cholesterol 169, LDL 110, VLDL 23, HDL 36, TSH 1.[address] of the head completed yesterday is negative for hemorrhage, mass-effect, or acute process. There is mild subcortical and periventricular microangiopathic change. There is right temporal encephalomalacia, probably postsurgical. I reviewed the images as well as the radiologist rotation of this test. A CT angiogram of the head and neck is negative for significant stenosis, occlusion, or aneurysm within the bilateral ACAs, MCAs, or client director. There is no significant stenosis, occlusion, or dissection within the cervical carotid or vertebral arteries. There is moderate focal narrowing of approximately 50% within the proximal cavernous segment of the right internal carotid artery due to surrounding enhancing soft tissue measuring about 2 x 1 cm, consistent with residual meningioma in light of this patient's history. MRI of the brain completed yesterday is negative for acute or subacute stroke. There is no hydrocephalus. No hemorrhage. Normal flow voids at the skull base. There is postoperative encephalomalacia within the right temporal lobe. MRI was done without gadolinium enhancement. Per my review, there is probably some tumor encasement of the right cavernous carotid related to this patient's known history of right temporal lobe/skull base meningioma, potentially corroborated by the CT angiography of the head and neck. I reviewed the images as well as the radiologist interpretation of this test. Electrocardiogram reveals a normal sinus rhythm, 71 bpm.
--- NOTE | 2019-09-13 15:50 | Discharge Summary ---
Date of Service September 13, 2019 Admission HPI Per Admitting Provider Patient is a 59 years old female with past medical history of hypertension, hyperlipidemia, meningioma, GERD who presents to the emergency room with a complaint of right-sided face droop and feeling dizzy and generalized weakness. Patient said her grandson was sick this morning as well and he had runny nose. Patient said she had a headache and her blood pressure was fluctuating. On arrival to the emergency room patient blood pressure was elevated 173/99 and she was given hydralazine 5 mg IV. She was also checked for influenza AMB and both were negative. Patient denies fever, chills, chest pain, shortness of breath, frequency, urgency, hematuria, dysuria, melena, nausea, vomiting. Patient was also given aspirin 81. At the beginning patient was reporting right sided hand weakness and leg weakness but then she admitted that she has chronic right hip pain and the pain is shooting from the back down to her leg. Labs are reviewed: WBC 7.6, hemoglobin 12.7, hematocrit 40.3, platelets 329, PT 9.9, INR 1, APTT 23.6, sodium 141, potassium 3.7, chloride 108, creatinine 0.79, GFR 83.1, magnesium 2.1, AST 10, ALT 15, troponin [address] head: There is no hemorrhage, mass affect, no evidence of acute territorial ischemia by CT criteria. CTA head and neck shows no significant stenosis, occlusion or aneurysm within the bilateral LEE as MCAS or DATA CLERK S, no significant stenosis occlusion or dissection identified within the cervical carotid or vertebral arteries. Moderate focal narrowing of approximately 50% within the proximal cavernosal segment of the right internal carotid artery. This is due to a surrounding enhancing soft tissue extra-axial mass measuring 2 x 1 cm this favors a meningioma. Decision was made to admit patient for observation on telemetry for to rule out transient ischemic attack and further diagnosis and treatment. Discharge Data Allergies Allergy/AdvReac Type Severity Reaction Status Date / Time erythromycin base Allergy Hives Verified 09/12/19 12:26 meclizine Allergy Rash Verified 09/12/19 12:26 meperidine [From Demerol] Allergy Rash Verified 09/12/19 12:26 acetaminophen [From Vicodin] AdvReac Vomiting Verified 09/12/19 12:26 hydrocodone [From Vicodin] AdvReac Vomiting Verified 09/12/19 12:26 Consultations 09/12/19 13:56 ED Decision to Admit Stat 09/12/19 15:51 Consult Case Management - Discharge Planning Routine Consult Neurology Routine Ordered Studies 09/12/19 11:34 CT head/brain wo con Stat 09/12/19 11:35 CT angio head w con Stat CT angio neck with con Stat 09/12/19 15:51 MR brain wo con Stat US venous doppler LE BI Stat Discharge Plan Discharge Items Patient Disposition: Home - Self-Care Reason For Visit: TIA, GERNERALIZED WEAKNESS Discharge Diagnosis: L Cervicalgia, Stroke like symptoms, Possible TIA Activity: Resume your previous activity Non-emergency contact: Primary Care Provider and Neurologist Call non-emergency contact if: you have any medication questions and your symptoms worsen Follow-up/Referrals: PCP,NO [Primary Care Provider] - Diet: Regular Stand-Alone Forms: My [employer], Smoking Cessation Medications and DC Order Prescriptions: No Action gabapentin 600 mg tablet 600 mg PO TID RF: 0 atorvastatin 10 mg tablet 10 mg PO HS RF: 0 tizanidine 4 mg tablet 4 mg PO HS RF: 0 omeprazole 40 mg capsule,delayed release(DR/EC) 40 mg PO DAILY RF: 0 oxycodone-acetaminophen 10-325 mg tablet 1 tab PO QID PRN (Reason: Pain) RF: 0 levothyroxine 50 mcg tablet 50 mcg PO QAM RF: 0 buspirone 10 mg tablet 10 mg PO BID RF: 0 diclofenac sodium 75 mg tablet,delayed release (DR/EC) 75 mg PO BID RF: 0 levetiracetam 1,000 mg tablet 1,000 mg PO BID RF: 0 Vimpat 100 mg tablet 100 mg PO BID RF: 0 vitamin B complex [B-Complex] Tablet 1 tab PO DAILY RF: 0 Krames/Other Patient Handouts: A1C, Prediabetes, Diabetes Meal Planning Admission Data Admit Date/Time: 09/12/19 14:22 Attending Provider: Scarlet Vazquez Admit Provider: Uma Goldberg Primary Care Provider: PCP,NO Other Providers: Uma Goldberg ; Jaskaran Stewart
--- NOTE | 2019-09-13 17:04 | Family Medicine Progress Note ---
Date of Service September 13, 2019 Assessment & Plan (1) Stroke-like symptoms: Patient is as 59 year old female PMHx Meningioma s/p craniotomy for 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 Upon presentation she was noted to have R sided weakness and L facial droop. Right side weakness and Left facial droop with Left side neck pain and dizziness -Brain MRI, Head/Neck CTA, Head CT negative for acute stroke or infarct, TIA cannot be excluded. -TTE negative for regional wall abnormalities or intraseptal defect. -US venous doppler - negative for DVT -CBC, CMP, TSH, Lipid panel, BNP, HgbA1C ordered -A1C 6.0, other labs normal. -ASA 81mg, Atorvastatin 40mg -Neurology consult -Resume outpatient medication without dosage changes -Noncontrast MRI of cervical spine to r/o acute cervical disk herniation -Management of hypertension Hx of Seizures -Patient noted not taking the past 3 days. -Lacosamide 100mg PO BID -Keppra 1000mg PO BID -Gabapentin 600mg TID -No visualized seizures so far, appears stable -Neuro consult as above Meningioma -Stable -Noted on Head/Neck CTA Hypertension -Home Lisinopril 10mg QD -Hydralazine 10mg PO TID PRN BP >160/90 -Patient's pressures vary greatly with her mood/anxiety. Right Hip Pain, chronic -Xrays negative for acute process -Continue Diclofenac 75mg PO BID -Tizanidine 4mg PO HS -Gabapentin 600mg TID -Percocet and morphine for severe hip pain given at admission, D/C -Patient denies significant hip pain currently. Hyperlipidemia -Atorvastatin 10mg increased to 40mg -Chol 169, LDL 110, HDL 36 Hypothyroidism -TSH 1.480 -Levothyroxine 50mcgs QD GERD -Pantoprazole 40mg QD FEN/GI - Regular DVT PPx - Hep q12h Code - Full Dispo - Med/Surg (2) Severe hypertension: (3) Meningioma: (4) Hyperlipidemia: (5) Hypothyroidism: (6) Right hip pain: (7) GERD (gastroesophageal reflux disease): (8) History of seizures: Supervising Physician Co-Signing Physician Notes Resident Physician Supervision Note: I independently interviewed and examined the patient and verified the luna history and physical, reviewed labs and image studies, discussed the case with the resident Dr. Pires and agree with the findings and care plan. Subjective Patient seen this morning at the bedside. Patient was sleeping at the time of entering the room and aroused easily to conversation. When asked to recall her reasoning for being here, she noted that yesterday she was laying on her couch when she felt a "pop" in her neck on the L side which produced significant 8/10 sharp pain and dizziness. She stated that during this time her symptoms worsened when she laid down and improved as she sat more upright. She notified her Neurologist that she follows in [place] and they stated that the patient should present to the ED since she "may be having a seizure right now." Upon presentation, patient was stated to have L neck pain, dizziness, L facial droop, R arm and L weakness, and slowed speech and was worked up for concerns of stroke or TIA. Patient did state that she has had "at least 9 TIA's" in the past with "3 being diagnosed." She also attributes a history of seizures that have been ongoing for 4 years this coming September and that her last episode was in [facility] of 2018. Currently the patient states she is still noting pain in her L neck rated 6/10 and that her thinking feels "foggy." She also still notes R leg weakness, but that her R arm has relatively resolved. Review of Systems Constitutional: + fatigue and + weakness; no fever and no chills Eyes: no eye pain and no photophobia Ear, Nose, Mouth, Throat: + dizziness and + snoring; no ear pain, no tinnitus and no hearing loss Respiratory: no cough, no dyspnea, no hemoptysis and no pain on inspiration Cardiovascular: no chest pain, no radiating jaw, neck or arm pain, no dyspnea on exertion, no orthopnea and no palpitations Gastrointestinal: + nausea; no abdominal pain, no vomiting, no constipation and no diarrhea/loose stools Genitourinary: no dysuria and no hematuria Musculoskeletal: + neck pain, + radicular pain (Pain from neck into L arm) and + muscle weakness (R leg ) Neurologic: + localized weakness, + paresthesia (R face), + radiating pain, + seizure-like activity and + dizziness; no paralysis Physical Exam Constitutional: well developed, well nourished and cooperative; no acute distress Eyes: normal visual deleon by confrontation, + eyelid abnormality (R eyelid ptosis, chronic per patient), EOM intact bilaterally and reactive pupils; no ny stagmus ENMT: external ear and nose normal, oropharynx normal Ears: no hearing impairment Neck: trachea midline, no thyromegaly Respiratory: normal respiratory effort, lungs clear to auscultation Cardiovascular: RRR, no murmur, no edema Heart Sounds: normal S1 and normal S2 Vessels: no carotid bruit Gastrointestinal (Abdomen): normal bowel sounds, soft, nontender, no hepatosplenomegaly Musculoskeletal: Head/Neck/Chest: normocephalic, head atraumatic and + limited ROM of neck (restricted 2/2 pain with righward rotation) Extremities: extremities normal to inspection and + abnormal strength (RLE 4/5 strength) Skin: no rashes, warm and dry Neurologic: normal touch/pain/proprioception, CN's II-XI intact bilaterally and awake Speech / Cognition: normal speech Motor/Sensory: no pronator drift Cranial Nerves: normal accommodation, EOM intact bilaterally, normal facial strength, tongue midline, normal hearing, able to rotate head bilaterally, able to elevate shoulders bilaterally, no nystagmus and symmetric palate elevation Coordination: normal [id number] test Psychiatric: Orientation: alert, oriented x 3 and cooperative Eye Contact: + fair eye contact Affect: + blunted affect Results & Data Vital Signs (Past 12 Hours) Vital Signs Temp Pulse Pulse Resp BP BP Pulse Ox 09/13/19 15:02 36.5 C 85 19 146/94 H 94 09/13/19 12:13 80 18 129/70 09/13/19 11:00 36.6 C 83 18 162/97 H 90 09/13/19 08:00 79 09/13/19 07:00 36.5 C 79 18 113/73 94 Laboratory Results Abnormal lab results 09/13/19 09/13/19 09/13/19 Range/Units 05:25 05:25 05:25 MCHC 31.3 L (32-36) g/dL Glucose 104 H (70-99) mg/dl Hemoglobin A1c 6.0 H (4.5-5.6) % Calcium 8.4 L (8.5-10.1) mg/dl AST 9 L (15-37) U/L Albumin 2.7 L (3.4-5.0) gm/dl Globulin 4.3 H (2.5-4.0) gm/dl Albumin/Globulin Ratio 0.6 L (0.9-2) Diagnostic Findings 09/12/[address] IMPRESSION: There is no hemorrhage, mass effect, or evidence of acute territorial ischemia by CT criteria. Chest X-ray IMPRESSION: No acute process. Head CTA IMPRESSION: 1. No significant stenosis, occlusion, or aneurysm within the bilateral ACAs, MCAs, or hydrotreater operator. 2. No significant stenosis, occlusion, or dissection identified within the cervical carotid or vertebral arteries. 3. Moderate focal narrowing of approximately 50% within the proximal cavernous segment of the right internal carotid artery. This is due to a surrounding enhancing soft tissue extra-axial mass measuring 2.0 x 1.0 cm. This favors a meningioma. Neck CTA IMPRESSION: 1. No significant stenosis, occlusion, or aneurysm within the bilateral ACAs, MCAs, or hydrotreater operator. 2. No significant stenosis, occlusion, or dissection identified within the cervical carotid or vertebral arteries. 3. Moderate focal narrowing of approximately 50% within the proximal cavernous segment of the right internal carotid artery. This is due to a surrounding enhancing soft tissue extra-axial mass measuring 2.0 x 1.0 cm. This favors a meningioma. Brain MRI IMPRESSION: 1. No acute intracranial abnormality. 2. No evidence for an acute ischemic event. 3. Operative changes right temporal lobe with associated postprocedural encephalomalacia. Hip-Xray IMPRESSION: No acute process. Mild degenerative change right hip. Venous Doppler Study IMPRESSION: No DVT within the right or left lower extremity. Transthoracic Echocardiogram IMPRESSION: 1) Normal left ventricular size and systolic function. EF 55-60%. No regional wall motion abnormalities. Mild concentric left ventricular hypertrophy. 2) No significant valvular abnormalities visualized. 3) Normal estimated right ventricular systolic pressure. 4) Nondiagnostic saline contrast images. 5) Technically difficult study, enhanced with IV Definity. 6) No prior study available for comparison. Medications Administered Current Inpatient Medications Acetaminophen (Tylenol) 650 mg PO Q4H PRN PRN Reason: Pain or Fever Stop: 10/12/19 15:50 Al Hydrox/Mg Hydrox/Simethicone (Maalox) 15 ml PO Q4H PRN PRN Reason: Dyspepsia Stop: 10/12/19 15:50 Aspirin (Ecotrin Ectab) 81 mg PO QAM [facility] Stop: 10/13/19 08:59 Last Admin: 09/13/19 08:02 Dose: 81 mg Documented by: Atorvastatin Calcium (Lipitor) 40 mg PO QAM [facility] Stop: 10/13/19 08:59 Last Admin: 09/13/19 08:03 Dose: 40 mg Documented by: Buspirone HCl (Buspar) 10 mg PO BID [facility] Stop: 10/12/19 20:59 Last Admin: 09/13/19 08:02 Dose: 10 mg Documented by: Diclofenac Sodium (Voltaren) 75 mg PO BID [facility] Stop: 10/12/19 20:59 Last Admin: 09/13/19 08:01 Dose: 75 mg Documented by: Gabapentin (Neurontin) 600 mg PO TID [facility] Stop: 10/12/19 16:14 Last Admin: 09/13/19 13:26 Dose: 600 mg Documented by: Heparin Sodium (Porcine) (Heparin Sodium (Porcine)) 5,000 units SQ Q8 [facility] Stop: 10/12/19 21:59 Last Admin: 09/13/19 13:26 Dose: 5,000 units Documented by: Hydralazine HCl (Apresoline) 10 mg PO TID PRN PRN Reason: high blood pressure Stop: 10/12/19 15:50 Last Admin: 09/12/19 16:59 Dose: 10 mg Documented by: Promethazine HCl 25 mg/ Sodium (Chloride) 51 mls @ 204 mls/hr IV Q6H PRN PRN Reason: Nausea And Vomiting Stop: 10/12/19 16:35 Lacosamide (Vimpat) 100 mg PO BID [facility] Stop: 10/12/19 20:59 Last Admin: 09/13/19 08:01 Dose: 100 mg Documented by: Levetiracetam (Keppra) 1,000 mg PO BID [facility] Stop: 10/12/19 20:59 Last Admin: 09/13/19 08:02 Dose: 1,000 mg Documented by: Levothyroxine Sodium (Synthroid) 50 mcg PO DAILYBB [facility] Stop: 10/13/19 06:29 Last Admin: 09/13/19 05:42 Dose: 50 mcg Documented by: Lisinopril (Zestril) 10 mg PO QAM [facility] Stop: 10/12/19 18:29 Last Admin: 09/13/19 08:03 Dose: 10 mg Documented by: Magnesium Hydroxide (Milk Of Magnesia) 30 ml PO Q12H PRN PRN Reason: Constipation Stop: 10/12/19 15:50 Miscellaneous Information (Pharmacist Discharge Med Rec Consult) 1 ea N/A UD PRN PRN Reason: Consult Stop: 10/12/19 15:50 Ondansetron HCl (Zofran) 4 mg IV Q4H PRN PRN Reason: Nausea Stop: 10/12/19 16:34 Last Admin: 09/13/19 05:41 Dose: 4 mg Documented by: Pantoprazole Sodium (Protonix) 40 mg PO DAILY [facility] Stop: 10/13/19 08:59 Last Admin: 09/13/19 08:03 Dose: 40 mg Documented by: Polyethylene Glycol (Miralax Powder Packet) 17 gm PO DAILY PRN PRN Reason: Constipation Stop: 10/12/19 15:50 Tizanidine HCl (Zanaflex) 4 mg PO HS [facility] Stop: 10/12/19 20:59 Last Admin: 09/12/19 22:39 Dose: Not Given Documented by: Vitamin B Complex (Vitamin B Complex) 1 tab PO DAILY [facility] Stop: 10/13/19 08:59 Last Admin: 09/13/19 08:03 Dose: 1 tab Documented by: PG Care Time/CCT Total # of Minutes Spent Total Time Spent with Patient: Total time spent is greater than 50% in coordination of care (as documented) at patient's floor/unit and/or counseling patient: Resident Activity Tracking Resident Involvement: Resident Care Provided Care Provided: Adult Hospital Medicine
[2019-09-13] MEDS: TIZANIDINE HCL 4 MG TABLET PO SCH (21:19)
[2019-09-14] MEDS: LEVOTHYROXINE SODIUM 50 MCG TABLET PO SCH (06:00)
[2019-09-14] MEDS: HEPARIN SOD 5,000 UNIT/0.5 ML VIAL SQ SCH ×2 (06:00→14:34)
[2019-09-14 07:12] VITALS: O2SAT 94
[2019-09-14] MEDS: levETIRAcetam 500 MG TAB PO SCH (08:05)
[2019-09-14] MEDS: LACOSAMIDE 50 MG TABLET PO SCH (08:06)
[2019-09-14] MEDS: PANTOprazole 40 MG TAB PO SCH (08:06)
[2019-09-14] MEDS: LISINOPRIL 10 MG TAB PO SCH (08:06)
[2019-09-14] MEDS: VITAMIN B COMPLEX TAB PO SCH (08:06)
[2019-09-14] MEDS: GABAPENTIN 600 MG TAB PO SCH ×2 (08:06→15:05)
[2019-09-14] MEDS: ASPIRIN 81 MG ECTAB PO SCH (08:06)
[2019-09-14] MEDS: DICLOFENAC SODIUM 75 MG TABCR PO SCH (08:06)
[2019-09-14] MEDS: ATORVASTATIN 40 MG TAB PO SCH (08:07)
[2019-09-14] MEDS ORDERED: LORazepam 1 MG TAB SL STA (10:01)
--- NOTE | 2019-09-14 11:15 | Magnetic Resonance Report ---
MR cervical spine wo con HISTORY: Pain. Neuropathy. r/o disk herniation TECHNIQUE: Multiplanar multisequence MRI of the cervical spine was performed without the use of contr ast. COMPARISON STUDY: None. FINDINGS: Findings consistent with multilevel anterior cervical fusions from C3 through C7. Signal ch aracteristics of the cervical cord are unremarkable. C2-C3: No significant central canal or neural foraminal narrowing. C3-C4: Mild right central disc herniation. Mild impact right anterior aspect of the cervical cord. C4-C5: No significant central canal or neural foraminal narrowing. C5-C6: Minimal right posterior disc bulge C6-C7: Minimal broad-based bulging disc. Moderate narrowing of the neural foramina bilaterally C7-T1: No significant central canal or neural foraminal narrowing. IMPRESSION: 1. Mild right posterior disc herniation C3-C4. 2. Mild broad-based bulging discs C5-C6 and C6-C7. 3. Moderate narrowing of multilevel neural foramina. 4. Findings consistent with extensive anterior fusion. The above report was generated using voice recognition software. It may contain grammatical, syntax or spelling errors. Electronically signed by: Saurabh Lara M.D. 09/14/2019 11:14 AM
[2019-09-14] MEDS ORDERED: MECLIZINE HCL 25 MG TAB PO PRN (12:13)
[2019-09-14] MEDS ORDERED: STROKE PATIENT DISCHARGE STA (14:21)
--- NOTE | 2019-09-14 14:29 | Discharge Summary ---
Date of Service September 14, 2019 Admission HPI Per Admitting Provider Patient is a 59 years old female with past medical history of hypertension, hyperlipidemia, meningioma, GERD who presents to the emergency room with a complaint of right-sided face droop and feeling dizzy and generalized weakness. Patient said her grandson was sick this morning as well and he had runny nose. Patient said she had a headache and her blood pressure was fluctuating. On arrival to the emergency room patient blood pressure was elevated 173/99 and she was given hydralazine 5 mg IV. She was also checked for influenza AMB and both were negative. Patient denies fever, chills, chest pain, shortness of breath, frequency, urgency, hematuria, dysuria, melena, nausea, vomiting. Patient was also given aspirin 81. At the beginning patient was reporting right sided hand weakness and leg weakness but then she admitted that she has chronic right hip pain and the pain is shooting from the back down to her leg. Labs are reviewed: WBC 7.6, hemoglobin 12.7, hematocrit 40.3, platelets 329, PT 9.9, INR 1, APTT 23.6, sodium 141, potassium 3.7, chloride 108, creatinine 0.79, GFR 83.1, magnesium 2.1, AST 10, ALT 15, troponin [address] head: There is no hemorrhage, mass affect, no evidence of acute territorial ischemia by CT criteria. CTA head and neck shows no significant stenosis, occlusion or aneurysm within the bilateral LEE as MCAS or RESPIRATORY THERAPIST S, no significant stenosis occlusion or dissection identified within the cervical carotid or vertebral arteries. Moderate focal narrowing of approximately 50% within the proximal cavernosal segment of the right internal carotid artery. This is due to a surrounding enhancing soft tissue extra-axial mass measuring 2 x 1 cm this favors a meningioma. Decision was made to admit patient for observation on telemetry for to rule out transient ischemic attack and further diagnosis and treatment. Admission Exam Per Admitting Provider Constitutional: WD/WN, vitals as above well developed and + morbidly obese Eyes: PERRL, conjunctivae normal, anicteric sclerae ENMT: external ear and nose normal, oropharynx normal Neck: trachea midline, no thyromegaly Respiratory: normal respiratory effort, lungs clear to auscultation Cardiovascular: Heart Sounds: normal S1 and normal S2 Vessels: dorsalis pedis pulses present Extremities: + pedal edema Musculoskeletal: no cyanosis or clubbing, extremities motor strength 5/5 Right hip pain, positive straight leg test Skin: no rashes, warm and dry Neurologic: patellar DTR's 2+ bilat, sensation intact Genitourinary: no vaginal lesions, no adnexal mass Lymphatic: no cervical or axillary lymphadenopathy Principal Diagnosis Right side weakness and Left facial droop with Left side neck pain and dizziness Discharge Exam Constitutional well developed, well nourished and cooperative; no acute distress Eyes normal visual deleon by confrontation, + eyelid abnormality (R eyelid ptosis, chronic per patient), EOM intact bilaterally and reactive pupils; no nystagmus ENMT external ear and nose normal, oropharynx normal Ears: no hearing impairment Neck trachea midline, no thyromegaly Respiratory normal respiratory effort, lungs clear to auscultation Cardiovascular RRR, no murmur, no edema Heart Sounds: normal S1 and normal S2 Vessels: no carotid bruit Gastrointestinal (Abdomen) normal bowel sounds, soft, nontender, no hepatosplenomegaly Musculoskeletal Head/Neck/Chest: normocephalic, head atraumatic and + limited ROM of neck (restricted 2/2 pain with righward rotation) Extremities: extremities normal to inspection and + abnormal strength (RLE 4/5 strength) Skin no rashes, warm and dry Neurologic normal touch/pain/proprioception, CN's II-XI intact bilaterally and awake Speech / Cognition: normal speech Motor/Sensory: no pronator drift Cranial Nerves: normal accommodation, EOM intact bilaterally, normal facial strength, tongue midline, normal hearing, able to rotate head bilaterally, able to elevate shoulders bilaterally, no nystagmus and symmetric palate elevation Coordination: normal [id number]-[id number] test Psychiatric Orientation: alert and oriented x 3 Eye Contact: + fair eye contact Affect: + blunted affect Discharge Data Allergies Allergy/AdvReac Type Severity Reaction Status Date / Time erythromycin base Allergy Hives Verified 09/12/19 12:26 meclizine Allergy Rash Verified 09/12/19 12:26 meperidine [From Demerol] Allergy Rash Verified 09/12/19 12:26 acetaminophen [From Vicodin] AdvReac Vomiting Verified 09/12/19 12:26 hydrocodone [From Vicodin] AdvReac Vomiting Verified 09/12/19 12:26 Consultations 09/12/19 13:56 ED Decision to Admit Stat 09/12/19 15:51 Consult Case Management - Discharge Planning Routine Consult Neurology Routine Ordered Studies 09/12/19 11:34 CT head/brain wo con Stat 09/12/19 11:35 CT angio head w con Stat CT angio neck with con Stat 09/12/19 15:51 MR brain wo con Stat US venous doppler LE BI Stat 09/14/19 09:38 MR cervical spine wo con Routine Hospital Course (1) Stroke-like symptoms: Patient is as 59 year old female PMHx Meningioma s/p craniotomy for 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 Upon presentation she was noted to have R sided weakness and L facial droop. Right side weakness and Left facial droop with Left side neck pain and dizziness -Brain MRI, Head/Neck CTA, Head CT negative for acute stroke or infarct, TIA cannot be excluded. -TTE negative for regional wall abnormalities or intraseptal defect. -US venous doppler - negative for DVT -CBC, CMP, TSH, Lipid panel, BNP, HgbA1C ordered -A1C 6.0, other labs normal. -ASA 81mg, Atorvastatin 40mg -Neurology consult -Resume outpatient medication without dosage changes -Noncontrast MRI of cervical spine to r/o acute cervical disk herniation -Management of hypertension -Noncontrast MRI of cervical spine showed varied disk herniations of C3-C4, C5- C6, C6-C7, chronic findings consistent with extensive anterior fusion. -Recommend further follow up in the outpatient setting. Hx of Seizures -Patient noted not taking the past 3 days. -Lacosamide 100mg PO BID -Keppra 1000mg PO BID -Gabapentin 600mg TID -No visualized seizures so far, appears stable -Neuro consult as above Meningioma -Stable -Noted on Head/Neck CTA Hypertension -Home Lisinopril 10mg QD -Hydralazine 10mg PO TID PRN BP >160/90 while inpatient Right Hip Pain, chronic -Xrays negative for acute process -Continue Diclofenac 75mg PO BID -Tizanidine 4mg PO HS -Gabapentin 600mg TID -Percocet and morphine for severe hip pain given at admission, D/C -Patient denies significant hip pain currently. Hyperlipidemia -Atorvastatin 10mg increased to 40mg, continue home dose upon d/c -Chol 169, LDL 110, HDL 36 Hypothyroidism -TSH 1.480 -Levothyroxine 50mcgs QD GERD -Pantoprazole 40mg QD FEN/GI - Regular DVT PPx Hep q12h while inpatient Code - Full Dispo - To Home (2) Severe hypertension: (3) Meningioma: (4) Hyperlipidemia: (5) Hypothyroidism: (6) Right hip pain: (7) GERD (gastroesophageal reflux disease): (8) History of seizures: Total Time Total Time Spent Total Time Spent (In Minutes): see attending attestation Discharge Plan Discharge Items Patient Disposition: Home - Self-Care Reason For Visit: TIA, GERNERALIZED WEAKNESS Discharge Diagnosis: L Cervicalgia, Stroke like symptoms Condition on Discharge: Good Activity: Resume your previous activity Non-emergency contact: Primary Care Provider and Neurologist Call non-emergency contact if: you have any medication questions and your symptoms worsen Follow-up/Referrals: PCP,NO [Primary Care Provider] - Diet: Regular Addtl Attending Provider Instructions: Landrum, you were seen and evaluated yesterday evening in the ED at [facility] for chief complaint of severe left sided neck pain, dizziness, weakness, and left sided facial droop. There was an initial concern for stroke or TIA and several imaging studies were conducted including Head CT, Head/Neck CTA, Brain MRI, and Echocardiogram. At that time you had also noted significant right leg weakness with constant right hip pain so a hip x-ray was also ordered. Your studies were all negative for concerns of a stroke and your hip only displayed some mild degenerative change that can occur with age and use. You were given IV fluids, aspirin, and IV hydralazine due to your elevated blood pressure as well. You were admitted to the hospital for observation and continued evaluation to rule out any other etiologies. This morning you noted that while your neck was still painful, your symptoms have improved somewhat. You also were evaluated by a Neurologist who based on the imaging results and your clinical exam ruled that a stroke at this time was unlikely, and while a TIA is possible, was more unlikely as well. MRI of your cervical spine showed bulging of some of your cervical disks and, old fusion changes, and some narrowing of your neuronal foramina. Your left neck pain may be more related to a cervical disk issue rather than a stroke related problem. It was recommended that you follow up in the outpatient setting with your home Neurologist. You are being discharged to home today after a stroke evaluation was ruled out. Please follow the instructions below: -Please continue your current medications as they are prescribed. -Please start taking ASA 81mg daily. -Please follow up with your home Neurologist within the next week or as soon as available. -Please follow up with your home PCP within the next week or as soon as possible. -If you have any questions or your symptoms worsen, please notify your PCP, Neurologist, or return to the ED for evaluation. Pending Studies at Discharge: No Studies:: CT SCAN OF THE BRAIN WITHOUT IV CONTRAST CLINICAL HISTORY: Strokelike symptoms. COMPARISON STUDY: No priors. TECHNIQUE: Unenhanced axial CT scan of the brain is performed from the vertex to the skull base. A dose lowering technique was utilized adhering to the principles of ALARA. FINDINGS: Brain parenchyma: There is mild subcortical and periventricular microangiopathic change. Right temporal encephalomalacia is consistent with a remote insult. There is no hemorrhage, mass effect, or evidence of acute territorial ischemia by CT criteria. [place]-white matter differentiation is preserved. No extra-axial fluid collection is seen. Ventricles, sulci, cisterns: Normal in configuration. Intracranial vasculature: There is atherosclerotic calcification of the cavernous carotid arteries. Calvarium: The skeletal structures are osteopenic. There is postoperative change from right-sided craniotomy. Sinuses and mastoids: The visualized paranasal sinuses are clear. The mastoid air cells are well pneumatized. Orbits: The bony orbits are grossly intact. There are bilateral ocular lens implants. IMPRESSION: There is no hemorrhage, mass effect, or evidence of acute territorial ischemia by CT criteria. Electronically signed by: Alexandre Curtis M.D. 09/12/2019 11:58 AM Dictated: 09/12/19 1156 Transcribed: 09/12/19 1156 XR chest 1V portable HISTORY: Stroke symptoms. COMPARISON: None. FINDINGS: The lungs are clear. Cardiac silhouette is normal in size. No pleural effusions. No pneumothorax. IMPRESSION: No acute process. Electronically signed by: Yariel Fletcher M.D. 09/12/2019 1:00 PM Dictated: 09/12/19 1252 Transcribed: 09/12/19 1252 HEAD & NECK CTA HISTORY: Stroke symptoms. TECHNIQUE: Multiaxial CT images of the head were performed following the intravenous administration of contrast to evaluate the major cerebral vessels. Multiaxial CT images of the neck were also performed following the intravenous administration of contrast to evaluate the major cervical vessels. Maximum intensity projection images were also obtained. A dose lowering technique was utilized adhering to the principles of ALARA. COMPARISON: Head CT 09/12/2019. FINDINGS: There is no mass, hematoma, midline shift, or acute infarct. Visualized left intracranial internal carotid artery, distal vertebral arteries, and basilar artery are widely patent. There is no significant stenosis, occlusion, or aneurysm seen within the bilateral ACAs, MCAs, or culture manager. Prior right frontotemporal craniotomy. Encephalomalacia within the right anterior temporal lobe is likely due to the old postoperative change. The major dural venous sinuses appear patent. Moderate focal narrowing of approximately 50% within the proximal cavernous segment of the right internal carotid artery. This is due to a surrounding enhancing soft tissue extra-axial mass measuring 2.0 x 1.0 cm. This favors a meningioma. The aortic arch and proximal great vessels are widely patent. There is no significant stenosis, occlusion, or dissection identified within the bilateral common carotid, internal carotid, or vertebral arteries. The anterior cervical fusion spinal hardware is noted. IMPRESSION: 1. No significant stenosis, occlusion, or aneurysm within the bilateral ACAs, MCAs, or culture manager. 2. No significant stenosis, occlusion, or dissection identified within the cervical carotid or vertebral arteries. 3. Moderate focal narrowing of approximately 50% within the proximal cavernous segment of the right internal carotid artery. This is due to a surrounding enhancing soft tissue extra-axial mass measuring 2.0 x 1.0 cm. This favors a meningioma. Electronically signed by: Yariel Fletcher M.D. 09/12/2019 12:08 PM Dictated: 09/12/19 1156 Transcribed: 09/12/19 1156 HEAD & NECK CTA HISTORY: Stroke symptoms. TECHNIQUE: Multiaxial CT images of the head were performed following the intravenous administration of contrast to evaluate the major cerebral vessels. Multiaxial CT images of the neck were also performed following the intravenous administration of contrast to evaluate the major cervical vessels. Maximum intensity projection images were also obtained. A dose lowering technique was utilized adhering to the principles of ALARA. COMPARISON: Head CT 09/12/2019. FINDINGS: There is no mass, hematoma, midline shift, or acute infarct. Visualized left intracranial internal carotid artery, distal vertebral arteries, and basilar artery are widely patent. There is no significant stenosis, occlusion, or aneurysm seen within the bilateral ACAs, MCAs, or culture manager. Prior right frontotemporal craniotomy. Encephalomalacia within the right anterior temporal lobe is likely due to the old postoperative change. The major dural venous sinuses appear patent. Moderate focal narrowing of approximately 50% within the proximal cavernous segment of the right internal carotid artery. This is due to a surrounding enhancing soft tissue extra-axial mass measuring 2.0 x 1.0 cm. This favors a meningioma. The aortic arch and proximal great vessels are widely patent. There is no significant stenosis, occlusion, or dissection identified within the bilateral common carotid, internal carotid, or vertebral arteries. The anterior cervical fusion spinal hardware is noted. IMPRESSION: 1. No significant stenosis, occlusion, or aneurysm within the bilateral ACAs, MCAs, or culture manager. 2. No significant stenosis, occlusion, or dissection identified within the cervical carotid or vertebral arteries. 3. Moderate focal narrowing of approximately 50% within the proximal cavernous segment of the right internal carotid artery. This is due to a surrounding enhancing soft tissue extra-axial mass measuring 2.0 x 1.0 cm. This favors a meningioma. Electronically signed by: Yariel Fletcher M.D. 09/12/2019 12:08 PM Dictated: 09/12/19 1156 Transcribed: 09/12/19 1156 MR brain wo con HISTORY: Mental status change TIA TECHNIQUE: Multiplanar multisequence MRI of the brain was performed without the use of contrast. COMPARISON STUDY: CT brain same date FINDINGS: There are no areas of restricted diffusion to suggest acute in farction. The midline structures are intact. The paranasal sinuses are clear. The mastoid air cells are clear. The ventricles and sulci are within normal limits for age. There is no mass, hematoma, midline shift. The major vascular flow-voids at the skull base are well maintained. There are findings of postoperative encephalomalacia of the right temporal lobe. The ventricular system is midline. There is moderate motion artifact. This compromises high-resolution detail. IMPRESSION: 1. No acute intracranial abnormality. 2. No evidence for an acute ischemic event. 3. Operative changes right temporal lobe with associated postprocedural encephalomalacia. The above report was generated using voice recognition software. It may contain grammatical, syntax or spelling errors. Electronically signed by: Saurabh Lara M.D. 09/12/2019 8:57 PM Dictated: 09/12/192054 Transcribed: 09/12/192054 XR hip RT min 2V CLINICAL HISTORY: right hip pain COMPARISON: None. DISCUSSION: The bones and joint spaces appear intact. There is no evidence of fracture, dislocation or bony disease. There is no evidence for soft tissue swelling. Mild degenerative change IMPRESSION: No acute process. Mild degenerative change right hip. The above report was generated using voice recognition software. It may contain grammatical, syntax or spelling errors. Electronically signed by: Saurabh Lara M.D. 09/12/2019 4:16 PM Dictated: 09/12/191613 Transcribed: 09/12/191613 US venous doppler LE BI HISTORY: Pain. Edema. POSSIBLE DVT COMPARISON STUDY: None. FINDINGS: There is normal compressibility, flow, and augmentation within the bilateral lower extremity deep venous systems. IMPRESSION: No DVT within the right or left lower extremity. The above report was generated using voice recognition software. It may contain grammatical, syntax or spelling errors. Electronically signed by: Saurabh Lara M.D. 09/12/2019 4:51 PM Dictated: 09/12/191650 Transcribed: 09/12/191650 MR cervical spine wo con HISTORY: Pain. Neuropathy. r/o disk herniation TECHNIQUE: Multiplanar multisequence MRI of the cervical spine was performed without the use of contrast. COMPARISON STUDY: None. FINDINGS: Findings consistent with multilevel anterior cervical fusions from C3 through C7. Signal characteristics of the cervical cord are unremarkable. C2-C3: No significant central canal or neural foraminal narrowing. C3-C4: Mild right central disc herniation. Mild impact right anterior aspect of the cervical cord. C4-C5: No significant central canal or neural foraminal narrowing. C5-C6: Minimal right posterior disc bulge C6-C7: Minimal broad-based bulging disc. Moderate narrowing of the neural foramina bilaterally C7-T1: No significant central canal or neural foraminal narrowing. IMPRESSION: 1. Mild right posterior disc herniation C3-C4. 2. Mild broad-based bulging discs C5-C6 and C6-C7. 3. Moderate narrowing of multilevel neural foramina. 4. Findings consistent with extensive anterior fusion. The above report was generated using voice recognition software. It may contain grammatical, syntax or spelling errors. Electronically signed by: Saurabh Lara M.D. 09/14/2019 11:14 AM Dictated: 09/14/19 1111 Transcribed: 09/14/19 1111 Stand-Alone Forms: My [facility] [place], Smoking Cessation Medications and DC Order Prescriptions: Continued gabapentin 600 mg tablet 600 mg PO TID RF: 0 atorvastatin 10 mg tablet 10 mg PO HS RF: 0 tizanidine 4 mg tablet 4 mg PO HS RF: 0 omeprazole 40 mg capsule,delayed release(DR/EC) 40 mg PO DAILY RF: 0 oxycodone-acetaminophen 10-325 mg tablet 1 tab PO QID PRN (Reason: Pain) RF: 0 levothyroxine 50 mcg tablet 50 mcg PO QAM RF: 0 buspirone 10 mg tablet 10 mg PO BID RF: 0 diclofenac sodium 75 mg tablet,delayed release (DR/EC) 75 mg PO BID RF: 0 levetiracetam 1,000 mg tablet 1,000 mg PO BID RF: 0 Vimpat 100 mg tablet 100 mg PO BID RF: 0 vitamin B complex [B-Complex] Tablet 1 tab PO DAILY RF: 0 Discharge Orders: Discharge Order (Routine); Ordered 09/14/19 Ordered By: Gerardo Duval/Other Patient Handouts: A1C, Prediabetes, Diabetes Meal Planning Admission Data Admit Date/Time: 09/12/19 14:22 Attending Provider: Scarlet Vazquez Admit Provider: Uma Goldberg Primary Care Provider: PCP,NO Other Providers: Uma Goldberg ; Jaskaran Stewart Other Interventions: Discharge Summary Assessment (RN) Last Done: 09/14/19 14:23 DC Date/Time DO NOT enter until pt leaves facility: 09/14/19 18:18 Supervising Physician Co-Signing Physician Notes Resident Physician Supervision Note: I independently interviewed and examined the patient and verified the luna history and physical, reviewed labs and image studies, discussed the case with the resident Dr. Pires and agree with the findings and care plan. Resident Activity Tracking Resident Involvement: Resident Care Provided Care Provided: Adult Hospital Medicine
[2019-09-14 15:37] VITALS: BP 132/82; PULSE 86; TEMP 97.7
--- NOTE | 2019-09-23 14:21 | Coding Query ---
A supporting diagnosis is required for the test/procedure performed on this patient in order for us to be reimbursed by the patient's insurance. Please provide a supporting diagnosis for the following test/procedure listed below next to the test name along with your signature. *If there is no additional diagnosis for this patient that would support the following test/procedure please document that below next to the test/procedure. Test(s)/Procedure(s) that require a supporting diagnosis: HBA1C DIAGNOSIS: PERFLUTREN LIPID MICRO, 2ML DIAGNOSIS: VENOUS DOPPLER LOWER EXT BILAT DIAGNOSIS: Provider Signature: Date: Thank you Julia Verdugo [facility] Information Management Once completed, please kindly fax back to [phone] For questions please call [phone] [facility]
== END 2019-09-14 18:18 | disposition home or self-care (01) ==
LOC: ED 11:19 → 1E 11:19 → SUATTDRO 14:22 → 1E 15:25 → 2E 19:04 → 4W 09-13 17:08